=== PATIENT | male | born 1960 | race Caucasian/White ===

== ENCOUNTER 2017-12-22 11:51 | Emergency (ER) | payer OTHER ==
[2017-12-22 13:02] VITALS: BP 138/80
[2017-12-22 13:37] LABS: ABSOLUTE BASOPHIL COUNT 0 /CUMM (0.0-0.2); ABSOLUTE EOSINOPHIL COUNT 0.1 /CUMM (0.0-0.7); ABSOLUTE GRANULOCYTE CT 10.4 /CUMM (1.4-6.5); ABSOLUTE LYMPH COUNT 0.7 /CUMM (1.2-3.4); ABSOLUTE MONOCYTE COUNT 0.9 /CUMM (0.10-0.60); BASOPHIL % 0.3 % (0.0-2.0); EOSINOPHIL % 0.5 % (0-5); GRANULOCYTE % 85.7 % (42.2-75.2); MEAN CORPUSCULAR HGB CONC 32.7 G/DL (33.0-37.0); MEAN CORPUSCULAR VOLUME 85.7 FL (80.0-94.0); MEAN PLATELET VOLUME 8.2 FL (7.4-10.4); PLATELET COUNT 192 /CUMM (130-400); RBC DISTRIBUTION WIDTH 15.3 % (11.5-14.5); RED BLOOD CELL CT 5.49 /CUMM (4.70-6.10); WHITE BLOOD CELL COUNT 12.1 /CUMM (4.8-10.8)
== END 2017-12-22 15:45 | disposition admitted as inpatient to this hospital (09) ==
LOC: ERH 11:51
PROVIDERS: Emergency Medicine
DX: M43.6 Torticollis (principal)
CPT/HCPCS: 99281

== ENCOUNTER 2017-12-22 22:03 | Emergency (ER) | payer OTHER ==
--- NOTE | 2017-12-22 23:08 | ED GENERAL ADULT ---
History of Present Illness General Chief Complaint: Neck/Upper Back Pain/Injury Stated Complaint: SEEN THIS AM, NECK PAIN Source: patient Exam Limitations: no limitations Allergies Coded Allergies: gluten (GI 12/22/17) Triage Note: PER PT WAS HERE EARLIER FOR NECK PAIN BUT WAS HERE FOR 4 HRS SO LEFT. CONTINUES WITH NECK PAIN TO TOP OF HEAD PER PT " I AM A CANCER PT" Triage Nurses Notes Reviewed? yes Onset: Abrupt Duration: day(s): (3-4), constant, continues in ED, getting worse Timing: single episode today Injury Environment: home Severity: moderate, severe Severity Numbers: 7 No Modifying Factors: none HPI: 57 year old male with hx of pancreatic ca and pe presents for eval of neck and head pain. symptoms started 4 days ago and getting worse. no trauma or triggering event. pain radiated from posterio neck ionto head. worse with movememnt. he has been taking tylenol wothout improvememnt. no fever, changes in vision, chest pain sob, vomiting. he is on blood thinners but hasnt taken them in 5 days. (Dwain Resendez) Vital Signs & Intake/Output Vital Signs & Intake/Output Vital Signs Date Time Temp Pulse Resp B/P B/P Pulse O2 O2 Flow FiO2 Mean Ox Delivery Rate 12/22 2344 96.0 95 18 125/80 100 Room Air 12/22 2210 98.0 90 20 145/85 95 ED Intake and Output 12/23 0000 12/22 1200 Intake Total 0 Output Total 0 Balance 0 Intake, Oral 0 Output, Urine 0 Patient 202 lb Weight (Ander ROOT,Shon Nogueira) Past History Travel History Traveled to [place] past 21 day No Medical History Any Pertinent Medical History? see below for history Neurological: NONE EENT: NONE Gastrointestinal: PANCREATIC CANCER Hepatic: NONE Renal: NONE Musculoskeletal: NONE Psychiatric: NONE Endocrine: NONE Cancer(s): PANCREATIC CANCER Surgical History Surgical History: non-contributory Psychosocial History Who do you live with Patient/Self What is your primary language Uruguayan Tobacco Use: Never used Family History Hx Contributory? No (Dwain Resendez) Review of Systems Review of Systems Constitutional: Reports: no symptoms. EENTM: Reports: no symptoms. Respiratory: Reports: no symptoms. Cardiovascular: Reports: no symptoms. GI: Reports: no symptoms. Genitourinary: Reports: no symptoms. Musculoskeletal: Reports: neck pain. Skin: Reports: no symptoms. Neurological/Psychological: Reports: headache. Hematologic/Endocrine: Reports: no symptoms. Immunologic/Allergic: Reports: no symptoms. All Other Systems: Reviewed and Negative (Dwain Resendez) Physical Exam Physical Exam General Appearance: well developed/nourished, no apparent distress, alert, awake Head: atraumatic, normal appearance Eyes: Bilateral: normal appearance, PERRL, EOMI. Ears, Nose, Throat: normal pharynx, normal ENT inspection, hearing grossly normal Neck: normal inspection, supple, full range of motion, cervical paraspinous muscles tender to palpation bilaterally. No midline tenderness. no deformities no bruising swelling or abrasions Respiratory: normal breath sounds, chest non-tender, no respiratory distress, lungs clear Cardiovascular: regular rate/rhythm, normal peripheral pulses Peripheral Pulses: 2+ radial (R), 2+ radial (L) Gastrointestinal: soft, non-tender Back: normal inspection, normal range of motion, no vertebral tenderness Extremities: normal inspection, normal range of motion, no edema Neurologic/Psych: no motor/sensory deficits, awake, alert, oriented x 3, normal gait, normal mood/affect, patch finisher II-XII nml as tested, cerebellar function intact. Negative Romberg and normal finger to nose Skin: intact, normal color, warm/dry Lymphatic: no anterior cervical zoe Core Measures ACS in differential dx? No CVA/TIA Diagnosis: No Sepsis Present: No Sepsis Focused Exam Completed? No (Dwain Resendez) Progress Differential Diagnoses I considered the following diagnoses in my evaluation of the patient: [Migraine, intracranial hemorrhage, metastatic disease, pathologic fracture, muscle spasm, meningitis, tension headache, cluster headache] Plan of Care: Patient seen and evaluated. He has pain in his head and neck. The pain is reproducible with movement and palpation CT scan suggests possible dural sinus thrombosis. Case was discussed with Dr. Queen from neurology he recommends transferring to [place] for further evaluation and treatment. case discussed with dr ariza and he agrees. Patient is neurologically intact. Saline lock was placed. Consent form and transfer forms filled out. Patient was sent to [facility] by ambulance. Diagnostic Imaging: Viewed by Me: CT Scan. Discussed w/RAD: CT Scan. Radiology Impression: PATIENT: CATINA SRIVASTAVA PRESENT AGE: 57 PATIENT ACCOUNT NO: [id number] : 56 LOCATION: [facility] ORDERING PHYSICIAN: Dwain LYNN SERVICE DATE: 12/22/17 EXAM TYPE: CAT - CT CERV SPINE WO IV CONTRAST; CT HEAD WO IV CONTRAST EXAMINATION: NONCONTRAST HEAD CT NONCONTRAST CERVICAL SPINE CT INDICATION INFORMATION: Headache. Neck pain. COMPARISON: None TECHNIQUE: Separate noncontrast CT examinations of the head and cervical spine were performed. Coronal and sagittal images were created for each examination at the technologist workstation. DLP: 1053 mGy-cm FINDINGS: Head: There is no evidence of acute intracranial hemorrhage or territorial infarction. No abnormal mass effect or midline shift is seen. Uribe to white matter differentiation is well preserved. No extra-axial fluid collections are identified. No hydrocephalus. No significant volume loss. Hypoattenuation noted in the region of the right temporal lobe is likely artifactual. The osseous structures and soft tissues are normal. The mastoid air cells and visualized portions of the paranasal sinuses are well aerated. There is hypoattenuation noted involving the right transverse sinus extending into the right sigmoid sinus and right internal jugular vein. Cervical spine: There is anatomic alignment of the vertebral bodies and posterior elements. The atlantoaxial and atlantooccipital articulations are intact. Vertebral body heights are maintained. There is multilevel intervertebral disc space narrowing with endplate osteophyte formation and facet arthropathy. No suspicious osseous lesions. No evidence of acute fracture. No prevertebral soft tissue swelling. Visualized portions of the lung apices are unremarkable. The thyroid gland is unremarkable. IMPRESSION: 1. Hypoattenuation noted in the right transverse sinus extending to the sigmoid sinus and internal jugular vein. This appearance raises suspicion for a dural venous sinus thrombosis. This could be further evaluated by MRI/MRV. 2. Parenchymal hypoattenuation of the right temporal lobe appears artifactual, but could also be further evaluated on MRI. 3. No acute fracture or malalignment of the cervical spine. Multilevel degenerative changes. No suspicious osseous lesions. This critical result was discussed with Dwain Dominguez MD by telephone at 12/23/2017 12:41 AM and it was ascertained that the content and urgency of the report was understood at the time of direct communication. DICTATED BY: Haresh ROOT,Arsh DATE/TIME DICTATED:12/23/1729 COATING MACHINE OPERATOR:ROSALBA DATE/TIME TRANSCRIBED:12/23/1729 Initial ED EKG: none (Dwain Resendez) Departure Departure Disposition: OTHER GENERAL HOSPITAL (ACUTE) Condition: Stable Clinical Impression Primary Impression: Dural venous sinus thrombosis Referrals: Cricket ROOT,Brad Snider (PCP/Family) Departure Forms: Customer Survey General Discharge Information (Dwain Resendez) PA/CANOE BUILDER Co-Sign Statement Statement: ED Attending supervision documentation- [x] I saw and evaluated the patient. I have also reviewed all the pertinent lab results and diagnostic results. I agree with the findings and the plan of care as documented in the PA's/CANOE BUILDER's documentation. pt with head ct suggestive of transverse and sigmoid sinus thrombus... of note, pt shares that he missed several doses of his anticoagulation meds. Pt to be transferred to [place] for complex specialty care. [] I have reviewed the ED Record and agree with the PA's/CANOE BUILDER's documentation. [] Additions or exceptions (if any) to the PAs/CANOE BUILDER's note and plan are summarized below: [] (Ander ROOT,Shon Nogueira) Critical Care Note Critical Care Note Critical Care Time: non-applicable (Dwain Resendez)
[2017-12-22 23:44] VITALS: BP 125/80
--- NOTE | 2017-12-23 00:44 | CT SCAN REPORT ---
EXAMINATION: NONCONTRAST HEAD CT NONCONTRAST CERVICAL SPINE CT INDICATION INFORMATION: Headache. Neck pain. COMPARISON: None TECHNIQUE: Separate noncontrast CT examinations of the head and cervical spine were performed. Coronal and sagittal images were created for each examination at the technologist workstation. DLP: 1053 mGy-cm FINDINGS: Head: There is no evidence of acute intracranial hemorrhage or territorial infarction. No abnormal mass effect or midline shift is seen. Uribe to white matter differentiation is well preserved. No extra-axial fluid collections are identified. No hydrocephalus. No significant volume loss. Hypoattenuation noted in the region of the right temporal lobe is likely artifactual. The osseous structures and soft tissues are normal. The mastoid air cells and visualized portions of the paranasal sinuses are well aerated. There is hypoattenuation noted involving the right transverse sinus extending into the right sigmoid sinus and right internal jugular vein. Cervical spine: There is anatomic alignment of the vertebral bodies and posterior elements. The atlantoaxial and atlantooccipital articulations are intact. Vertebral body heights are maintained. There is multilevel intervertebral disc space narrowing with endplate osteophyte formation and facet arthropathy. No suspicious osseous lesions. No evidence of acute fracture. No prevertebral soft tissue swelling. Visualized portions of the lung apices are unremarkable. The thyroid gland is unremarkable. IMPRESSION: 1. Hypoattenuation noted in the right transverse sinus extending to the sigmoid sinus and internal jugular vein. This appearance raises suspicion for a dural venous sinus thrombosis. This could be further evaluated by MRI/MRV. 2. Parenchymal hypoattenuation of the right temporal lobe appears artifactual, but could also be further evaluated on MRI. 3. No acute fracture or malalignment of the cervical spine. Multilevel degenerative changes. No suspicious osseous lesions. This critical result was discussed with Dwain Dominguez MD by telephone at 12/23/2017 12:41 AM and it was ascertained that the content and urgency of the report was understood at the time of direct communication.
== END 2017-12-23 01:41 | disposition short-term general hospital (02) ==
LOC: ERH 22:03
DX: G08 Intracranial and intraspinal phlebitis and thrombophlebitis (principal); R51 Headache